=== PATIENT | male | born 1965 | race Caucasian/White ===

== ENCOUNTER → 2020-02-14 13:00 | Outpatient (CLI) | payer BC, SELFPAY ==
--- NOTE | ~2020-02-14 | MR_ITS ---
EXAMINATION: MR knee RT wo con DATE: 02/14/2020 13:45 INDICATION: Chronic right knee pain. TECHNIQUE: Magnetic resonance imaging (MRI) of the right knee was performed without intravenous contr ast. Sequences included coronal PD-weighted FSE, coronal PD-weighted FS FSE, sagittal T2-weighted FS E, sagittal PD-weighted FS FSE and axial PD weighted fat saturated FSE. COMPARISON: None. FINDINGS: Medial compartment: Complex tear at the posterior horn of the medial meniscus which includes a longitudinal horizontal te ar plane as well as partial-thickness radial tear plane. There is chondral ulceration and deep fissur ing with mild subarticular edema along the anterior weightbearing medial femoral condyle. Partial thi ckness cartilage loss with mild chondral surface irregularity along the anterior third of the medial tibial plateau. Lateral compartment: Lateral meniscus is normal. Partial-thickness chondral fissuring involving up to one half of the cart ilage thickness but without degenerative subchondral changes along the posterior margin of the latera l tibial plateau. Normal cartilage along the weightbearing lateral femoral condyle. Patellofemoral compartment: Deep chondral fissuring at the lateral patellar facet extending to the apical ridge, in places with f rayed crabmeat-like appearance. Tiny focus of subarticular edema at the apical ridge. Juxtaposed deep chondral ulceration with mild underlying cortical irregularity at the caudal aspect of the trochlear groove, medial trochlea and inferomedial aspect of the lateral trochlea. Ligaments and tendons: Anterior and posterior cruciate ligaments are normal. The fibular collateral ligament complex is norm al. Mild thickening of the proximal medial collateral ligament without significant increased signal m ost likely mild scarring related to chronic sprain. Patellar tendon is normal. Small enthesophytes an d minimal tendinopathy at the patellar insertion of the distal quadriceps tendon. The visualized medi al and lateral hamstring tendons as well as the iliotibial band are normal. Fluid: Minimal right knee joint effusion. Moderate-sized [place]'s cyst. No loose osteochondral bodies identif ied. Osseous/other: Bone alignment is normal. No fracture or pathologic marrow replacing process. IMPRESSION: 1. Complex tear of the posterior horn of the medial meniscus. 2. 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 3. Minimal right knee joint effusion and moderate-sized [place]'s cyst. Reviewed, dictated and finalized at location B. IMPRESSION: 1. Complex tear of the posterior horn of the medial meniscus. 2. 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 3. Minimal right knee joint effusion and moderate-sized [place]'s cyst.
== END ==
PROVIDERS: Visit Provider Orthopaedic Surgery
DX: M17.11 Unilateral primary osteoarthritis, right knee (principal); M25.461 Effusion, right knee; M71.21 Synovial cyst of popliteal space [Baker], right knee; S83.231A Complex tear of medial meniscus, current injury, right knee, initial encounter; X58.XXXA Exposure to other specified factors, initial encounter
CPT/HCPCS: 73721